=== PATIENT | female | born 1965 | race African-American/Black ===

== ENCOUNTER 2025-08-25 05:45 | Emergency (ER) | payer OTHER ==
[~2025-08-25] VITALS: Ht 170.2 cm; Wt 64.0 kg
[2025-08-25 05:51] VITALS: O2SAT 99
[2025-08-25] MEDS: MORPHINE SULFATE 4 MG/ML INJ (FOR IV/IM USE) IV ONE (06:42)
[2025-08-25 06:50] LABS: BASOPHILS % 0.8 % (0.0-2.0); EOSINOPHILS % 0.8 % (0.0-5.0); HEMATOCRIT. 24.1 % (36.0-48.0); HEMOGLOBIN. 7.9 g/dL (12.0-16.0); LYMPHOCYTES % 21.2 % (20.0-50.0); MEAN PLATELET VOLUME 8.3 fl (7.4-10.4); MONOCYTES % 6.2 % (2.0-8.0); NEUTROPHILS % 71.0 % (40.0-76.0); PLATELET 201 x1000/uL (130-400); RED BLOOD CELL COUNT 2.74 mill/uL (4.2-5.4); RED CELL DISTRIBUTION WIDTH 20.2 % (11.6-14.6)
[2025-08-25 07:08] LABS: CREATININE 0.6 mg/dL (0.6-1.0)
[2025-08-25 07:09] LABS: UREA NITROGEN BLOOD < 5 mg/dL (9-23)
[2025-08-25 07:10] LABS: ASPARTATE AMINOTRANSFERASE 22 IU/L (<34)
[2025-08-25 07:11] LABS: BILIRUBIN DIRECT < 0.1 mg/dL (<=3.0); BILIRUBIN TOTAL 0.4 mg/dL (0.1-1.0); PROTEIN TOTAL 8.3 g/dL (6.0-8.3)
[2025-08-25 07:37] LABS: INR 1.0
[2025-08-25] MEDS ORDERED: HYDROMORPHONE HCL/PF 2MG/ML INJ IV ONE ×3 (08:00→08:45)
[2025-08-25] MEDS: HYDROMORPHONE HCL/PF 1MG/ML INJ IV NR ×2 (08:40→10:54)
[2025-08-25 10:44] VITALS: TEMP 36.6; O2SAT 99
[2025-08-25 10:54] VITALS: BP 147/75; PULSE 74; RESP 16
== END 2025-08-25 11:37 | disposition short-term general hospital (02) ==
LOC: ER 05:45 → CMPBEDREQ 12:22
DX: S42.302A Unspecified fracture of shaft of humerus, left arm, initial encounter for closed fracture (principal); C90.00 Multiple myeloma not having achieved remission; I10 Essential (primary) hypertension; X58.XXXA Exposure to other specified factors, initial encounter; Y93.89 Activity, other specified; Y92.89 Other specified places as the place of occurrence of the external cause; Y99.8 Other external cause status
CPT/HCPCS: 80076; 80048; 82550; 83735; 85025; 85610; 86850; 86900; 86901; 36415; 71045; 73030; 73060; 73070; 70450; 96374; 96375; 96376; 99285; J1171; J2270; Z7610